=== PATIENT | male | born 1975 | race Caucasian/White ===

== ENCOUNTER 2022-11-16 05:59 | Emergency (ER) | payer OTHER ==
[2022-11-16 06:10] VITALS: PULSE 95; RESP 20; TEMP 98; BMI 29.0
[2022-11-16 06:24] VITALS: BP 139/74
[2022-11-16] MEDS ORDERED: SODIUM CHLORIDE 0.9% 500 ML INFUS.BAG IV ONE (07:43)
[2022-11-16] MEDS ORDERED: ACETAMINOPHEN 1000 MG/100 ML BAG IVPB ONE (07:43)
[2022-11-16] MEDS ORDERED: ACETAMINOPHEN INJECTION 100 ML IVPB ONE (08:14)
[2022-11-16 08:24] LABS: BASO % 0.5 % (0-2.0); EOS % 1.5 % (0-4.5); HEMATOCRIT 47.2 % (35.4-49); HEMOGLOBIN 16.4 GM/dL (11.7-16.9); MCH 30.3 pg (25.7-33.7); MCHC 34.9 g/dl (32.0-35.9); MEAN CELL VOLUME 86.9 fl (80-96); MEAN PLT VOLUME 8.6 fl (7.5-11.1); MONO % 5.4 % (3.8-10.2); NEUT % 76.6 % (42.8-82.8); PLATELET COUNT 197 10^3/uL (134-434); RBC 5.43 M/mm3 (4.00-5.60); RDW 13.1 % (11.9-15.9); WHITE BLOOD COUNT 9.4 K/mm3 (4.0-10.0)
[2022-11-16 08:55] LABS: CALCIUM 9.6 mg/dL (8.5-10.1)
[2022-11-16 08:56] LABS: ALBUMIN 4.3 g/dl (3.4-5.0); BLOOD UREA NITROGEN 16.3 mg/dL (7-18); MAGNESIUM 2.1 mg/dL (1.8-2.4)
[2022-11-16 08:59] LABS: CREATININE 0.9 mg/dL (0.55-1.3)
[2022-11-16 09:00] LABS: BILIRUBIN,TOTAL 0.4 mg/dL (0.2-1); TOT PROT 7.6 g/dl (6.4-8.2)
== END 2022-11-16 11:22 | disposition home or self-care (01) ==
LOC: JER 05:59
PROC: 3E033NZ Introduction of Analgesics, Hypnotics, Sedatives into Peripheral Vein, Percutaneous Approach (ICD-10-PCS; principal; 2022-11-16)
DX: R51.9 Headache, unspecified (principal); R42 Dizziness and giddiness; R53.81 Other malaise; R53.1 Weakness
CPT/HCPCS: 36415; 70450-TC; 80053; 83735; 84484; 85025; 93005; 93010; 96374; 99285-25

== ENCOUNTER 2022-11-18 11:31 | Emergency (ER) | payer OTHER ==
[2022-11-18 11:38] VITALS: RESP 18; TEMP 98.2; BMI 29.3
[2022-11-18 12:51] VITALS: BP 124/74; PULSE 72
[2022-11-18 13:14] LABS: VENOUS BASE EXCESS 2.2 mmol/L (-2-2); VENOUS PCO2 41.1 mmHg (38-52); VENOUS PH 7.431 (7.310-7.410)
[2022-11-18 13:19] LABS: BASO % 0.7 % (0-2.0); EOS % 0.7 % (0-4.5); HEMATOCRIT 43.8 % (35.4-49); HEMOGLOBIN 15.1 GM/dL (11.7-16.9); LYMPH % 18.4 % (8-40); MCH 30.3 pg (25.7-33.7); MCHC 34.5 g/dl (32.0-35.9); MEAN CELL VOLUME 87.9 fl (80-96); MEAN PLT VOLUME 8.9 fl (7.5-11.1); NEUT % 74.2 % (42.8-82.8); PLATELET COUNT 196 10^3/uL (134-434); RBC 4.99 M/mm3 (4.00-5.60); RDW 12.6 % (11.9-15.9); WHITE BLOOD COUNT 9.5 K/mm3 (4.0-10.0)
[2022-11-18 13:22] LABS: INR 1.05 (0.83-1.09); PROTHROMBIN TIME (PATIENT) 12.2 SEC (9.7-13.0)
[2022-11-18 13:50] LABS: CALCIUM 9.4 mg/dL (8.5-10.1); MAGNESIUM 2.2 mg/dL (1.8-2.4)
[2022-11-18 13:53] LABS: CREATININE 0.8 mg/dL (0.55-1.3)
[2022-11-18 13:56] LABS: BILIRUBIN,TOTAL 0.5 mg/dL (0.2-1); TOT PROT 7.4 g/dl (6.4-8.2)
== END 2022-11-18 14:46 | disposition home or self-care (01) ==
LOC: JER 11:31
DX: R42 Dizziness and giddiness (principal)
CPT/HCPCS: 36415; 80053; 82803; 82962; 83735; 84443; 84484; 85025; 85610; 85730; 93005; 93010; 99284-25